=== PATIENT | female | born 1965 ===

== ENCOUNTER 2023-03-14 16:50 | Outpatient (CLI) | payer OTHER, SELFPAY ==
[2023-03-14 17:46] LABS: Basophils Absolute Auto 0.1 K/mm3 (0.0-0.1); Basophils Percent Auto 1.2 % (0.2-1.2); Eosinophils Absolute Auto 0.3 K/mm3 (0-0.3); Eosinophils Percent Auto 4.8 % (0-4.4); Hematocrit 38.4 % (37.0-47.0); Hemoglobin 12.5 g/dL (12.0-15.0); Immature Granulocyte Absolute 0.03 K/mm3 (0.00-0.031); Immature Granulocyte Percent A 0.5 % (0-0.5); Lymphocytes Percent Auto 39.2 % (18.3-44.2); Mean Corpuscular HGB Conc 32.6 g/dl (32-36); Mean Corpuscular Hemoglobin 30.1 pg (26-34); Mean Corpuscular Volume 92.5 fl (80-100); Mean Platelet Volume 9.4 fl (7.4-10.4); Monocytes Absolute Auto 0.4 K/mm3 (0.1-0.6); Monocytes Percent Auto 6.3 % (2.6-8.5); Neutrophils Absolute Auto 2.8 K/mm3 (1.3-6.7); Platelet Count Result 223 k/mm3 (150-375); Red Blood Count 4.15 M/mm3 (4.2-5.4); White Blood Count 5.9 K/mm3 (4.5-10.0)
== END 2023-03-14 16:51 | disposition home or self-care (01) ==
LOC: ANHLAB 16:52
PROVIDERS: Visit Provider Obstetrics & Gynecology
DX: N81.4 Uterovaginal prolapse, unspecified (principal); Z01.818 Encounter for other preprocedural examination
CPT/HCPCS: 36415; 85025; 86850; 86900; 86901

== ENCOUNTER 2023-03-15 10:37 | Outpatient (CLI) | payer OTHER, SELFPAY ==
--- NOTE | 2023-03-15 10:40 | ECG_ITS ---
Measurements Intervals [place] Rate: 57 P: 57 NH: 135 QRS: 55 QRSD: 110 T: 40 QT: 428 QTc: 419 Interpretive Statements SINUS BRADYCARDIA WITH OCCASIONAL VENTRICULAR PREMATURE COMPLEXES POSSIBLE LEFT ATRIAL ENLARGEMENT [-0.1mV P WAVE IN V1/V2] ABNORMAL ECG NO PREVIOUS ECG AVAILABLE FOR COMPARISON Electronically Signed On 03-16-2023 7:38:36 CDT by Patricio Mitchell M.D.
== END 2023-03-15 10:38 | disposition home or self-care (01) ==
PROVIDERS: Visit Provider Anesthesiology
DX: Z87.891 Personal history of nicotine dependence (principal); Z01.818 Encounter for other preprocedural examination
CPT/HCPCS: 93005

== ENCOUNTER 2023-03-21 00:53 | Day surgery (SDC) | payer OTHER, SELFPAY ==
[2023-03-14 13:07] VITALS: BMI 33.3
--- NOTE | 2023-03-14 13:36 | PC.NURSE ---
Report to the Outpatient Waiting Room, entrance under the green pavilion located off [facility], at 0600 on 03-21-23. Planned Procedure Time: 0730. Time changes happen often and if your time is changed the preop area will call you the afternoon before. - You and your visitor will be asked to self-screen and do not enter if you have any COVID symptoms. - A mask is optional within the hospital at this time. Patients may have clear liquids (water, carbonated beverages, clear teas, apple juice) until 3 hours prior to surgery with a maximum of 20 ounces. 0430 - No food from midnight until time of surgery - Infants may have breast milk until 4 hours before surgery, formula 6 hours prior to surgery. - Children will be allowed to drink immediately following surgery. If applicable, please bring a bottle or sippy cup to assist with drinking. Juice, water, soda, and popsicles are readily available. For infants on formula, please bring formula the day of surgery. Pacifiers are allowed. Take the following medications with a SIP of water the morning of surgery: None DO NOT STOP ANY OF YOUR OTHER PRESCRIPTION MEDICATIONS PRIOR TO SURGERY EXCEPT THE FOLLOWING Medications to discontinue per physician: Vitamins and supplements Date to take last dose: 03-18-23 Please no make-up, nail macanese, hairspray, perfume, deodorant, or body powder the day of surgery. No jewelry (including any body piercings) or valuables the day of surgery, leave them at home. Please take a shower or bath the night before, or the morning of, surgery with an antibacterial soap. Wear comfortable, loose fitting clothing. Children are encouraged to wear pajamas. - Jewelry must be removed prior to entering the operating room. Rings and piercings that are not removed may be cut off. - The hospital will not accept responsibility for valuables. - Please leave all valuables, including medications, at home the day of surgery. If you are going home after surgery, a licensed driver education instructor must drive you home. - NO public transportation without another adult if you receive anesthesia. - We recommend that an adult stay with you for 24 hours following discharge. - We also recommend that you do not drive, make important decision, drink alcoholic beverages, or take any drugs that were not prescribed by your health care provider for at least 24 hours after your discharge time. For Pediatric surgeries, we recommend two adults accompany the child home. Follow any additional instructions given to you from your surgeon. If you or anyone in your household have experienced Covid symptoms in the past week, please notify your surgeon or the nurse liaison at the phone number below for possible testing. Telephone instructions given to Lissett Anderson and asked if any additional questions and then verbalized understanding. Patient advised to call surgeon office or pre surgery nurse liaison [phone] if any additional questions.
--- NOTE | 2023-03-18 07:41 | P.HP_ITS ---
H&P: HPI History of Present Illness Date/Time: 03/18/23 07:41 Chief Complaint: Pelvic pain large uterus Narrative: Is a 57 year enlarged uterus pelvic pain. She is admitted for robotic hysterectomy bilateral salpingo-oophorectomy. Risks and benefits reviewed including but not exclusive, aspiration 1, bleeding, transfusion, perforation injury to bowel, bladder, ureters, or other internal organs with the need for open laparotomy. She received the [employer] handout entitled hysterectomy. She also received the de Sarah handout. She had all questions answered. She asked to proceed [facility] Social History Social History Smoking packs per day: 1.5 Smoking cigarettes per day: 30.0 Years smoked: 40 Smoking pack-years: 60.00 Smoking status: Former smoker Tobacco type: cigarettes Second hand tobacco smoke exposure: No Smoking end date: 06/24/22 Alcohol intake: current Drinks per week: 3 Substance use: never Substance use type: does not use Living arrangements: with family Spiritual care concerns: No Meds Home Medications and Allergies Home Medications Medication Instructions Recorded Confirmed Type cetirizine 10 mg tablet (Zyrtec) 10 mg PO DAILY 03/14/23 03/14/23 History ginkgo biloba leaf extract 120 1 tablet PO DAILY 03/14/23 03/14/23 History mg-choline bitartrate 110 mg tablet ([facility] Memory Support) lisinopril 20 1 tablet PO DAILY 03/14/23 03/14/23 History mg-hydrochlorothiazide 12.5 mg tablet multivit with minerals-iron 18 1 tablet PO DAILY 03/14/23 03/14/23 History mg-folic ac 400 mcg-vit K 25 mcg tablet (Adults Multivitamin) pantoprazole 40 mg tablet,delayed 40 mg PO DAILY 03/14/23 03/14/23 History release trazodone 50 mg tablet 100 mg PO HS PRN Insomnia 03/14/23 03/14/23 History Allergies Allergy/AdvReac Type Severity Reaction Status Date / Time No Known Allergies Allergy Mild Verified 03/14/23 12:56 Exam Const: General: cooperative, healthy appearing, comfortable and well groomed Nutritional Appearance: average body habitus Orientation/consciousness: oriented to person, oriented to place and oriented to time HENMT: Head: normal to inspection Resp: Effort & Inspection: normal respiratory effort Cardio: Rate: regular rate Rhythm: regular rhythm Heart sounds: S1 normal heart sound present and S2 normal heart sound present GI: Inspection: normal to inspection : External Female Exam: normal external appearance Speculum Exam - Vagina: normal appearance of the vagina Speculum Exam - Cervix: normal appearance of the cervix Bimanual exam- vagina & uterus: enlarged, Uterine tenderness and other (Second-degree prolapse present) Bimanual Exam- Adnexa, other: normal adnexae Assessment and Plan Assessment and plan (1) Enlarged uterus: Code(s): N85.2 - Hypertrophy of uterus Status: Acute (2) Pelvic pain: Code(s): R10.2 - Pelvic and perineal pain Status: Acute Plan Robotic total vaginal hysterectomy and bilateral salpingo-oophorectomy
[2023-03-21] VITALS (17 sets, daily range): BP systolic 83–148; BP diastolic 45–80; PULSE 48–73; RESP 12–17; TEMP 36.4–37.2; O2SAT 95–100; BMI 33.5
--- NOTE | 2023-03-21 05:56 | WPDHPUPDATE1 ---
History and Physical Update Update Date/Time: 03/21/23 05:56 History and Physical has been reviewed, including an updated exam of the patient. There are NO changes in the patient's condition. Risks, benefits, and alternatives have been discussed and questions answered. Patient agrees to proceed with procedure.
[2023-03-21] MEDS: LACTATED RINGERS 1,000 ML 30 ML IV CONT ×2 (06:45→10:05)
[2023-03-21 07:02] LABS: Anion Gap 7 mmol/L (8-16); Blood Urea Nitrogen 27 mg/dL (7-17); Calcium 9.1 mg/dL (8.4-10.2); Carbon Dioxide 24 mmol/L (22-30); Chloride 106 mmol/L (98-107); Estimated CRCL calculation 70 ml/min; Estimated Glomerular Filt Rate > 60; Glucose 97 mg/dL (65-110); Potassium 3.8 mmol/L (3.4-5.0); Sodium 137 mmol/L (137-145)
--- NOTE | 2023-03-21 07:09 | WPDANESEPPF ---
Anes - Initial Pre Proc Eval Procedure: Operation Date: 03/21/23 07:30 Proposed Procedures p Robotic Assisted Total Vaginal Hysterectomy with Bilateral Salpingo-oophorectomy - Aba Parsons MD Date/Time: 03/21/23 07:09 Surgeon: Aba Parsons MD Pre Op Diagnosis: uterine prolapse, fibroid, pain Patient Data Age: 57 Gender: F Height: 1.6 m Weight: 85.28 kg Allergies Allergy/AdvReac Type Severity Reaction Status Date / Time No Known Allergies Allergy Mild Verified 03/14/23 12:56 Home Medications Medication Instructions Recorded Confirmed Type cetirizine 10 mg tablet (Zyrtec) 10 mg PO DAILY 03/14/23 03/14/23 History ginkgo biloba leaf extract 120 1 tablet PO DAILY 03/14/23 03/14/23 History mg-choline bitartrate 110 mg tablet ([facility] Memory Support) lisinopril 20 1 tablet PO DAILY 03/14/23 03/14/23 History mg-hydrochlorothiazide 12.5 mg tablet multivit with minerals-iron 18 1 tablet PO DAILY 03/14/23 03/14/23 History mg-folic ac 400 mcg-vit K 25 mcg tablet (Adults Multivitamin) pantoprazole 40 mg tablet,delayed 40 mg PO DAILY 03/14/23 03/14/23 History release trazodone 50 mg tablet 100 mg PO HS PRN Insomnia 03/14/23 03/14/23 History hydrocodone 5 mg-acetaminophen 325 1 tablet PO Q4H PRN pain #30 tabs 03/21/23 Rx mg tablet Laboratory Tests 03/21/23 06:47 Sodium 137 mmol/L (137-145) Potassium 3.8 mmol/L (3.4-5.0) Chloride 106 mmol/L (98-107) Carbon Dioxide 24 mmol/L (22-30) Anion Gap 7 L mmol/L (8-16) BUN 27 H mg/dL (7-17) Creatinine 0.80 mg/dL (0.7-1.0) Estim Creat Clear Calc 70 ml/min Estimated GFR > 60 (59 - ) Glucose 97 mg/dL (65-110) Calcium 9.1 mg/dL (8.4-10.2) Patient hx anesthesia problems: none Family hx anesthesia problems: none Results Review: All pre-operative results and documents have been reviewed as part of the pre-operative evaluation. [facility] Social History Social History Smoking packs per day: 1.5 Smoking cigarettes per day: 30.0 Years smoked: 40 Smoking pack-years: 60.00 Smoking status: Former smoker Tobacco type: cigarettes Second hand tobacco smoke exposure: No Smoking end date: 06/24/22 Alcohol intake: current Drinks per week: 3 Substance use: never Substance use type: does not use Living arrangements: with family Spiritual care concerns: No Anes - Eval Final PreProcedure Day of Procedure 03/21/23 07:09 Patient weight: obese Heart: regular rate and rhythm Lungs: decreased breath sounds Airway: Mallampati scale class II Neurological: alert and oriented Last oral intake: >/= 8 hours ASA classification: III Emergent: no Anesthetic plan: proceed Anesthesia type and monitoring: general ETT and standard monitoring Results Review: All pre-operative results and documents have been reviewed as part of the pre-operative evaluation. Informed Consent: The patient's anesthetic plan and its attendant risks and benefits were discussed with the patient/family/POA. Questions were solicited and answers provided to the satisfaction of the patient/family/POA.
[2023-03-21] MEDS: ACETAMINOPHEN 500 MG TABLET 1000 MG PO (07:16)
[2023-03-21] MEDS: KETOROLAC 15 MG/ML VIAL (*BKC) IV PUSH (07:16)
[2023-03-21] MEDS: ceFAZolin 2 GM/D5W 50 ML 2 GM/50 ML BAG IVPB (07:28)
--- NOTE | 2023-03-21 08:50 | W.PM.PROC2 ---
Procedure Note - Detailed Date of Procedure 03/21/23 Pre-op Diagnosis uterine prolapse, fibroid, pain Post-op Diagnosis Same Procedure Performed Robotic total vaginal hysterectomy and bilateral salpingo-oophorectomy Surgeon Aba Parsons MD Anesthesia General Indications size 57 old female with uterine prolapse year fibroids Findings fibroid uterus adhesions anteriorly from bladder to anterior portion adhesions from to anterior Description of Procedure patient prepped draped sterile fashion placed dorsal lithotomy position. Excellent general trach anesthesia weighted speculum placed posterior fornix vagina. Anterior lip of the cervix grasped with single-tooth tenaculum. Uterus sounded 9cm. Serial dilatation with fragmented dilators performed followed passes the 8. JENNIFFER and the 3. Cold cup. Next the 16 Syriac catheter was placed in the bladder and drained clear urine. The remainder the instruments removed and the gloves were changed. A supraumbilical incision made the Veress needle passed in the abdomen. Abdomen filled with CO2 gas [id number]. The 8mm trocar advanced in the abdomen. Downside visualized no injury seen. Patient placed in Trendelenburg and right left lateral quadrant incisions made. 8Mm trocars advanced under direct visualization assuring no injury. Right upper quadrant incision made the 8mm trocar advanced under direct visualization assuring no injury. The robot was docked. Attention was turned to the marriage counselor. Adhesions were seen anteriorly and these were sharply dissected as needed to visualize the uterus cervix ovaries and tubes. Adhesions were seen from the omentum to the anterior abdominal wall and nose were cleared. The bladder was noted be markedly adherent to the fundus of the uterus. The round ligament on the left was grasped, burned, cut. Anteriorly a bladder flap was formed by layer by layer slowly dissecting the para peritoneum and retracting this laterally and caudally to the opposite round ligament was clamped, burned, cut. The left contained round ligament was clamped, burned, cut. The left infundibulopelvic structure was skeletonized removed left ovary and tube. This was serially clamped, burned, cut brought to the level of previously cut round ligament. In like fashion the right adnexa was removed by clamping burning and cutting the infundibulopelvic structure on the right and bringing this to the previously cut round ligament. Cardinal broad ligaments on the left were serially skeletonized clamping burning cutting and bring these down lateral edge of the uterus and cervix until the large tortuous blood vessels could be seen. These were individually clamped, burned, cut. In like fashion the cardinal broad ligaments on the right were serially skeletonized clamping burning cutting and bringing this down to the tortuous vessels on the right. These were individually clamped, burned, cut. Blanching the uterus was noted at this point in a colpotomy incision was made. Cervix uterus ovaries and tubes removed through the vagina. Vagina then closed with continuous running 0V lock from lateral edge to lateral edge back to midline. Irrigation undertaken to clear and hemostasis was assured. Robot was undocked. Gas removed from the abdomen. The trocars removed after gas removed from the abdomen the incisions closed with 4 Monocryl and glue. Instruments removed from vagina the patient was awakened. She went recovery in satisfactory condition. All sponge, needle, instrument counts were correct. There were no immediate complications. Estimated Blood Loss 25 Drains No Packing No Pathology Yes Complications No immediate complications Condition Stable Disposition PACU
--- NOTE | 2023-03-21 09:21 | P.DS_ITS ---
DS: Admitting Diagnosis Discharge Date 03/22/2023 Admitting Diagnosis enlarged uterus/pelvic pain DS: Discharge Diagnosis Discharge Diagnosis (1) Pelvic pain: Code(s): R10.2 - Pelvic and perineal pain Status: Acute (2) Enlarged uterus: Code(s): N85.2 - Hypertrophy of uterus Status: Acute DS: Summary Hospital Course Reason for hospitalization: patient was admitted for robotic hysterectomy bilateral salpingo-oophorectomy Hospital Course: patient underwent robotic total vaginal hysterectomy bilateral salpingo-ooph orectomy on 03/21/2023. The procedure was unremarkable please refer to the operative report. Her hospital course was unremarkable. She remained afebrile. She was ambulating, up, voiding without difficulty, voiding without difficulty, eating regular diet, and general without complaints. Time Spent with Patient Time attestation: Total time spent providing and/or coordinating discharge services: Exam Const: General: cooperative, healthy appearing and comfortable Nutritional Appearance: average body habitus Orientation/consciousness: oriented to person, oriented to place and oriented to time HENMT: Head: normal to inspection Chest: Chest palpation & inspection: normal inspection of the chest Resp: Effort & Inspection: normal respiratory effort Cardio: Rate: regular rate Rhythm: regular rhythm Heart sounds: S1 normal heart sound present and S2 normal heart sound present GI: Inspection: normal to inspection and incision ( wounds clean dry and intact) DS: Data Data Completed and Pending Pending studies at discharge: Pending at discharge 03/21/23 08:18 Surgical [PTH] Routine Labs on day of discharge: Labs from last 24 hours 03/21/23 06:47 Sodium 137 Potassium 3.8 Chloride 106 Carbon Dioxide 24 Anion Gap 7 L BUN 27 H Creatinine 0.80 Estim Creat Clear Calc 70 Estimated GFR > 60 Glucose 97 Calcium 9.1 Discharge Plan Discharge Patient Disposition: Home, Self-Care Stand Alone Forms: General Discharge Instructions Follow-up/Referrals: Aba Ivey MD [Physician] - Discharge Medications: New hydrocodone-acetaminophen 5-325 mg tablet 1 tablet PO Q4H PRN (Reason: pain) Qty: 30 0RF No Action lisinopril-hydrochlorothiazide 20-12.5 mg tablet 1 tablet PO DAILY pantoprazole 40 mg tablet,delayed release (DR/EC) 40 mg PO DAILY trazodone 50 mg tablet 100 mg PO HS PRN (Reason: Insomnia) Rx Instructions: take 1- 2 tablets HS as needed cetirizine [Zyrtec] 10 mg Tablet 10 mg PO DAILY Adults Multivitamin 18 mg iron-400 mcg-25 mcg Tablet 1 tablet PO DAILY [facility] Memory Support 120 mg- 110 mg Tablet 1 tablet PO DAILY
[2023-03-21] MEDS: fentaNYL CITRATE INJ (*CRX) 100 MCG/2 ML VIAL 25 MCG IV PUSH ×4 (09:30→09:36)
[2023-03-21] MEDS: LACTATED RINGERS 1,000 ML 1000 ML IV CONT (10:35)
--- NOTE | 2023-03-21 10:53 | SUR.PHASEI ---
1035, PT IV NOTED TO BE DISCONNECTED, ENTIRE BED NOTED TO BE COMPLETELY WET. ENTIRE BAG OF IVF OUT OF BAG
[2023-03-21] MEDS: DEXTROSE 5%/LACTATED RINGERS 1,000 ML 125 ML IV CONT (13:11)
[2023-03-21] MEDS: KETOROLAC 30 MG/ML VIAL (*BKC) IV PUSH (13:12)
[2023-03-21] MEDS: ENOXAPARIN 40 MG/0.4 ML SYRINGE SUB-Q (13:12)
[2023-03-21] MEDS: HYDROcodone/acetaminophen (*CRX) 5-325 MG TABLET 1 TAB PO ×3 (15:57→22:37)
[2023-03-21] MEDS: IBUPROFEN 600 MG TABLET PO (22:36)
[2023-03-21] MEDS: DOCUSATE SODIUM 100 MG CAPSULE PO (22:53)
[2023-03-22 00:40] VITALS: BP 122/65; PULSE 78; RESP 16; TEMP 37.4; O2SAT 95
[2023-03-22 04:33] VITALS: BP 126/76; PULSE 72; RESP 16; TEMP 37.6; O2SAT 95; O2SAT 96
[2023-03-22 05:11] LABS: Basophils Percent Auto 0.4 % (0.2-1.2); Eosinophils Absolute Auto 0.1 K/mm3 (0-0.3); Hematocrit 33.3 % (37.0-47.0); Hemoglobin 10.9 g/dL (12.0-15.0); Immature Granulocyte Absolute 0.02 K/mm3 (0.00-0.031); Immature Granulocyte Percent A 0.3 % (0-0.5); Lymphocytes Absolute Auto 1.85 K/mm3 (0.9-3.2); Lymphocytes Percent Auto 25.8 % (18.3-44.2); Mean Corpuscular HGB Conc 32.7 g/dl (32-36); Mean Corpuscular Hemoglobin 29.5 pg (26-34); Monocytes Absolute Auto 0.6 K/mm3 (0.1-0.6); Monocytes Percent Auto 7.8 % (2.6-8.5); Neutrophils Absolute Auto 4.6 K/mm3 (1.3-6.7); Neutrophils Percent Auto 64.7 % (45.5-73.1); Platelet Count Result 175 k/mm3 (150-375); Red Cell Distribution Width 12.4 % (11.5-14.5); White Blood Count 7.2 K/mm3 (4.5-10.0)
[2023-03-22] MEDS: HYDROcodone/acetaminophen (*CRX) 5-325 MG TABLET 1 TAB PO (06:31)
[2023-03-22] MEDS: IBUPROFEN 600 MG TABLET PO (06:33)
--- NOTE | 2023-03-22 06:36 | PM.GYNPNOP ---
MARKET SUPERINTENDENT - A/P Postoperative Procedures: Procedures Operation Date: 03/21/23 07:30 Actual Procedure Side Surgeon p Robotic Assisted Total Vaginal Hysterectomy with Bilateral Salpingo-oophorectomy Bilateral Aba Parsons MD Postoperative day: 1 Postoperative status: doing well Postoperative plan: routine post-op care, see orders, advance diet and discharge Time Spent With Patient Time: Total time spent is greater than 50% in coordination of care (as documented) at patient's floor/unit and/or counseling patient: Time with patient: less than 15 minutes MARKET SUPERINTENDENT- PN:Subj Post-Op Subjective Date/time seen: 03/22/23 06:36 Subjective: patient reports feeling better, patient has no complaints, pain is well controlled and patient is tolerating oral intake Exam Const: General: cooperative, healthy appearing, comfortable and well groomed Nutritional Appearance: average body habitus Orientation/consciousness: oriented to person, oriented to place and oriented to time HENMT: Head: normal to inspection Resp: Effort & Inspection: normal respiratory effort Cardio: Rate: regular rate Rhythm: regular rhythm Heart sounds: S1 normal heart sound present and S2 normal heart sound present GI: Inspection: normal to inspection and incision ( clean dry and intact) MARKET SUPERINTENDENT - PN: Obj Data Vital Signs Vital Signs: Vital Signs - 24 hr 03/21/23 08:58 03/21/23 09:10 03/21/23 09:25 Temperature 97.6 F Pulse Rate 73 57 L 52 L Respiratory Rate 14 12 17 Blood Pressure 89/63 L 85/49 L 84/51 L Pulse Oximetry 98 100 100 Oxygen Delivery Simple Face Mask Simple Face Mask Simple Face Mask Oxygen Flow Rate 8 8 8 03/21/23 09:40 03/21/23 09:55 03/21/23 10:05 Temperature Pulse Rate 52 L 56 L 56 L Respiratory Rate 14 14 16 Blood Pressure 107/54 L 86/46 L 83/52 L Pulse Oximetry 99 95 95 Oxygen Delivery Simple Face Mask Room Air Room Air Oxygen Flow Rate 8 03/21/23 10:20 03/21/23 10:35 03/21/23 10:50 Temperature Pulse Rate 56 L 61 48 L Respiratory Rate 16 13 13 Blood Pressure 87/45 L 100/53 L 116/67 Pulse Oximetry 98 96 99 Oxygen Delivery Room Air Room Air Nasal Cannula Oxygen Flow Rate 2 03/21/23 11:05 03/21/23 11:20 03/21/23 11:35 Temperature Pulse Rate 54 L 62 50 L Respiratory Rate 12 12 15 Blood Pressure 126/80 126/80 124/75 Pulse Oximetry 100 100 100 Oxygen Delivery Nasal Cannula Nasal Cannula Nasal Cannula Oxygen Flow Rate 2 2 2 03/21/23 12:10 03/21/23 12:30 03/21/23 15:50 Temperature 98.4 F 98.9 F Pulse Rate 62 65 Respiratory Rate 16 16 Blood Pressure 129/66 148/61 H Pulse Oximetry 100 100 98 Oxygen Delivery Nasal Cannula Oxygen Flow Rate 2 03/21/23 15:50 03/21/23 19:40 03/21/23 19:40 Temperature 98.4 F Pulse Rate 69 69 Respiratory Rate 16 16 Blood Pressure 141/73 H Pulse Oximetry 96 96 Oxygen Delivery Room Air Room Air Oxygen Flow Rate 03/22/23 00:40 03/22/23 00:40 03/22/23 04:33 Temperature 99.3 F 99.6 F Pulse Rate 78 78 72 Respiratory Rate 16 16 16 Blood Pressure 122/65 126/76 Pulse Oximetry 95 95 96 Oxygen Delivery Room Air Oxygen Flow Rate 03/22/23 04:33 Temperature Pulse Rate 72 Respiratory Rate 16 Blood Pressure Pulse Oximetry 95 Oxygen Delivery Room Air Oxygen Flow Rate Intake/Output Intake/Output: Intake & Output 03/19/23 03/20/23 03/21/23 03/22/23 23:59 23:59 23:59 23:59 Intake Total 3350 400 Output Total 200 1125 Balance 3150 -725 Meds/Results Medications: Active Medications Generic Name Dose Route Start Last Admin Trade Name Freq PRN Reason Stop Dose Admin Hydrocodone Bitart/Acetaminophen 1 tab 03/21/23 11:49 Hydrocodone/Acetaminophen (*Crx) 10-325 Mg Tablet PO Q3H PRN Pain Rated 6 or Greater Hydrocodone Bitart/Acetaminophen 1 tab 03/21/23 11:49 03/22/23 06:31 Hydrocodone/Acetaminophen (*Crx) 5-325 Mg Tablet PO 1 tab Q3H PRN Administration Pain Rated 5 or Less Docusate
[2023-03-22 06:55] VITALS: BP 146/71; PULSE 74; RESP 18; TEMP 37.2; O2SAT 98
== END 2023-03-22 08:42 | disposition home or self-care (01) ==
LOC: ANHSURGERY 06:08 → ANHOB2 11:52
PROVIDERS: Anesthesiology; PCP Family Medicine; Visit Provider Obstetrics & Gynecology
PROC: (CPT 58552; principal; 2023-03-21 07:30)
DX: N81.4 Uterovaginal prolapse, unspecified (principal); R10.2 Pelvic and perineal pain; N73.6 Female pelvic peritoneal adhesions (postinfective); D25.0 Submucous leiomyoma of uterus; D25.1 Intramural leiomyoma of uterus; D25.2 Subserosal leiomyoma of uterus; N83.292 Other ovarian cyst, left side; N83.291 Other ovarian cyst, right side; N83.8 Other noninflammatory disorders of ovary, fallopian tube and broad ligament; Z87.891 Personal history of nicotine dependence; E66.9 Obesity, unspecified; Z68.33 Body mass index [BMI] 33.0-33.9, adult
CPT/HCPCS: 58552; S2900; 36415; 80048; 85025; 88307; 99199; A9270; J0461; J0690; J1100; J1170; J1650; J1885; J2250; J2405; J2704; J2710; J3010; J7030; J7120; J7121